=== PATIENT | female | born 1965 | race Caucasian/White ===

== ENCOUNTER 2023-12-15 13:47 | Emergency (ER) | payer OTHER, BC ==
[2023-12-15 13:54] VITALS: BP 129/71; PULSE 95; RESP 18; TEMP 98; BMI 27.8
[2023-12-15] MEDS ORDERED: KETOROLAC TROMETHAMINE 30 MG/1 ML VIAL ONE (14:43)
[2023-12-15] MEDS ORDERED: LIDOCAINE 4% PATCH TP ONE (14:43)
[2023-12-15] MEDS: LIDOCAINE 4% PATCH TP ONE (14:48)
[2023-12-15] MEDS: KETOROLAC TROMETHAMINE 30 MG/1 ML VIAL IM ONE (14:48)
[2023-12-15] MEDS ORDERED: LIDOCAINE PATCH REMOVAL MC ONE (22:00)
== END 2023-12-15 14:59 | disposition home or self-care (01) ==
LOC: JERFT 13:47
PROC: 3E0233Z Introduction of Anti-inflammatory into Muscle, Percutaneous Approach (ICD-10-PCS; principal; 2023-12-15)
DX: M54.50 Low back pain, unspecified (principal); V49.40XA Driver injured in collision with unspecified motor vehicles in traffic accident, initial encounter
CPT/HCPCS: 99284-25

== ENCOUNTER 2025-05-17 10:56 | Emergency (ER) | payer BC ==
[2025-05-17 11:04] VITALS: BP 121/66; PULSE 87; RESP 16; TEMP 98.1; BMI 27.1
[2025-05-17 11:58] LABS: EPI CELLS 4 /uL (0-25.1); HYALINE CASTS 0 /uL (0-3.1); URINE APPEARANCE CLOUDY; URINE BACTERIA 197 /uL (0-1359); URINE BILIRUBIN NEGATIVE (NEGATIVE); URINE COLOR YELLOW; URINE GLUCOSE (UA) 3+ (NEGATIVE); URINE KETONE NEGATIVE (NEGATIVE); URINE LEUK ESTERASE 1+ (NEGATIVE); URINE NITRITE NEGATIVE (NEGATIVE); URINE PROTEIN 1+ (NEGATIVE); URINE RBC 3056 /uL (0-23.9); URINE UROBILINOGEN 0.2 mg/dL (0.2-1.0); URINE WBC 1840 /uL (0-25.8)
[2025-05-17] MEDS ORDERED: CEPHALEXIN MONOHYDRATE 500 MG CAPSULE (UD) ONE (12:17)
[2025-05-17] MEDS: CEPHALEXIN MONOHYDRATE 500 MG CAPSULE (UD) PO ONE (12:22)
== END 2025-05-17 12:26 | disposition home or self-care (01) ==
LOC: JER 10:56
DX: N39.0 Urinary tract infection, site not specified (principal); R30.0 Dysuria
CPT/HCPCS: 81003; 87086; 99283-25